=== PATIENT | female | born 1975 | race African-American/Black ===

== ENCOUNTER → 2017-06-21 | Outpatient (CLI) | payer MEDICARE, OTHER ==
[~2017-06-21] MED LIST: APRESOLINE PO; BENADRILINA25 MG PO; CATAPRES0.1 MG PO; CELLCEPT PO; CELLCEPT500 MG PO; CLONIDINE PO; COLACE PO; COREG PO; COUMADIN PO; DIAZEPAM10 MG PO; DSS100 MG PO; EPOGEN20000 U/ML IJ; FOLIC ACID1 MG PO; LASIX PO; LIPITOR; LISINOPRIL; MAG-OXIDE400 MG PO; MIRALAX17 GM DOB; NEPHROCAPS CAPSU1 MG PO; NEXIUM PO; NORMODYNE; NORVASC PO; NORVASC10 MG PO; NYSTATIN5 ML PO; OMEPRAZOLE20 M1 PO; OXYCONTIN PO; PERCOCET 10/3251 TAB PO; PERCOCET5/325 PO; PHENERGAN PO; PHENERGAN25 MG PO; PREDNISOLONE5 MG PO; PREDNISONE PO; PREDNISONE5 M1 PO; PRILOSEC20 MG PO; PROGRAF1 MG PO; REGLAN10 MG PO; RENAGEL800 MG PO; SOD BICARBONATE PO; SODIUM BICARBO650 MG PO; TYLENOL; VALCYTE450 MG PO; VISTARIL PO; XANAX2 MG PO; ZOCOR PO; ZOCOR20 MG PO; ZOFRAN8 MG PO; [UNRECOGNIZED DRUG - OTHER]; [UNRECOGNIZED DRUG - OTHER]
[2017-06-21 15:42] LABS: URINE APPEARANCE CLEAR; URINE BILIRUBIN NEG (NEG); URINE BLOOD NEG (NEG); URINE COLOR YELLOW; URINE GLUCOSE NEG (NEG); URINE KETONE NEG (NEG); URINE LEUKOCYTE ESTERASE NEG (NEG); URINE NITRATE NEG (NEG); URINE PROTEIN NEG (NEG); URINE SPECIFIC GRAVITY 1.024 (1.003-1.035); URINE UROBILINOGEN 0.2 MG/DL (NEG)
[2017-06-21 15:45] LABS: BASOPHIL% 0.4 % (0-2.5); EOSINOPHIL# 0.2 X10e3 (0-0.7); EOSINOPHIL% 1.7 % (0.0-7.0); HEMATOCRIT 43.4 % (35.0-45.0); HEMOGLOBIN 14.1 gm/dL (12.0-16.0); LYMPHOCYTE% 10.8 % (17.0-45.0); MEAN CELL VOLUME 85.6 FL (83-96); MEAN CORPUSCULAR HEMOGLOBIN 27.8 PG (28-34); MEAN CORPUSCULAR HGB CONC 32.5 g/dL (30-36); MEAN PLATELET VOLUME 9.3 FL (6.5-11.5); MONOCYTE# 0.8 X10e3 (0-1.0); MONOCYTE% 8.6 % (3.0-12.0); NEUTROPHIL# 7.6 X10e3 (1.5-7.1); NEUTROPHIL% 78.5 % (40-75); PLATELET COUNT 235 X10e3 (140-420); RED BLOOD COUNT 5.06 X10e (3.90-5.30); RED CELL DISTRIBUTION WIDTH 14.6 % (11.0-15.5); WHITE BLOOD COUNT 9.6 X10e3 (4.0-10.5)
[2017-06-21 15:46] LABS: DIFF IND NO
[2017-06-21 15:50] LABS: CULTURE INDICATED? NO
[2017-06-21 16:07] LABS: CREATININE,RANDOM URINE 185 mg/dL; TOTAL PROTEIN,RANDOM URINE <10 mg/dl (<10)
[2017-06-21 16:45] LABS: ALBUMIN SERUM 4.5 g/dL (3.5-5.0); BILIRUBIN, DIRECT 0.2 mg/dL (0.0-0.2); BILIRUBIN,INDIRECT 0.6 mg/dL (0.0-0.9); BILIRUBIN,TOTAL 0.8 mg/dL (0.2-2.0); BUN/CREATININE RATIO 16.25; CALCIUM SERUM 9.7 mg/dL (8.4-10.2); CREATININE SERUM 0.8 mg/dL (0.6-1.4); GLOM FILT RATE Estimated 106.2 mL/min (>60); MAGNESIUM 1.6 mg/dL (1.6-3.0); PHOSPHOROUS 2.5 mg/dL (2.5-4.6); POTASSIUM 4.6 mmol/L (3.5-5.1); PROTEIN TOTAL SERUM 8.5 g/dL (6.0-8.3)
== END | disposition home or self-care (01) ==
LOC: CTPL 14:53
PROVIDERS: Nurse Practitioner
DX: Z48.22 Encounter for aftercare following kidney transplant (principal); R39.9 Unspecified symptoms and signs involving the genitourinary system; D64.9 Anemia, unspecified; R79.89 Other specified abnormal findings of blood chemistry
CPT/HCPCS: 36415; 80061; 80069; 80076; 80197; 81003; 82570; 83036; 83735; 84156; 85025